=== PATIENT | female | born 1955 | race Caucasian/White ===

== ENCOUNTER 2017-02-01 22:50 | Emergency (ER) | payer BC | END 2017-02-02 04:45 | disposition home or self-care (01) | LOC: ER1 22:50 | DX: S16.1XXA Strain of muscle, fascia and tendon at neck level, initial encounter (principal); Z88.0 Allergy status to penicillin; J45.909 Unspecified asthma, uncomplicated; J44.9 Chronic obstructive pulmonary disease, unspecified; C34.90 Malignant neoplasm of unspecified part of unspecified bronchus or lung; F17.210 Nicotine dependence, cigarettes, uncomplicated; E03.9 Hypothyroidism, unspecified; C64.9 Malignant neoplasm of unspecified kidney, except renal pelvis; V49.50XA Passenger injured in collision with unspecified motor vehicles in traffic accident, initial encounter; Z90.710 Acquired absence of both cervix and uterus; Z90.5 Acquired absence of kidney; Z90.2 Acquired absence of lung [part of]; Y92.9 Unspecified place or not applicable | CPT/HCPCS: 70450; 72125; 99283 ==